=== PATIENT | male | born 1985 | race African-American/Black ===

== ENCOUNTER → 2024-11-05 | Outpatient (CLI) | payer MEDICARE, MEDICAID, SELFPAY ==
--- NOTE | 2024-11-05 15:20 | XR_ITS ---
Examination: MRI left foot, without contrast Date and time of exam: November 05, 2024 at 1629 hours INDICATIONS: Injury to the foot August 03, 2024 with persistent lateral left sided foot pain Technique: Multiple axial sagittal and coronal images of the left foot have been obtained with the Siemens high-resolution 1.5 [employer] MRI scanner. Images obtained include T2-weighted fat-suppressed sagittal sections, TR 3500, TE 46, T2 weighted coronal fat suppressed images, TR 3050, TE 84, T2-weighted transverse fat suppressed images, TR 3260, TE 63, proton density transverse images, TR 4720 TE 46, and T1 weighted coronal images, TR 560, TE 13. Findings: Mild increased signal distal fifth metatarsal Surrounding fluid density about the distal first metatarsal and fluid in the fifth metatarsophalangeal joint No soft tissue abscess Moderate narrowing first metatarsophalangeal joint with chronic erosions distal first metatarsal Mild plantar fasciitis IMPRESSION: Mild increased signal in the distal fifth metatarsal with fluid in the fifth metatarsophalangeal joint Recommend correlation with CT foot without contrast follow up
--- NOTE | 2024-11-05 15:20 | XR_ITS ---
Examination: MRI of brain without intravenous contrast. MRI brain with intravenous contrast. Date and time of exam:November 05, 2024, 1651 hours INDICATIONS: Frequent falls in the last several months with injury to head, headaches Technique: Multiple axial and sagittal images of the brain to been obtained. Siemens high-resolution 1.52 [employer] short bore scanner utilized. Sagittal sections, T1 weighted images, TR 500, TE 14, are performed. Axial sections proton-density and T2-weighted images have been obtained. Inversion recovery axial images, TR 9260, TE 111, TR 2500. Diffusion weighted images, axial sections, TR 4800, TE 128, B value 1000. Axial sections, ADC map, TR 4800, TE 128. Axial and coronal images were also obtained post 14 cc gadolinium administered intravenously. Findings:: Enlargement of the sella turcica is not present. The optic chiasm and infundibular stalk are not remarkable. There is no localized enlargement of the medulla or rosalva. Fourth ventricle and cerebellar tonsils appear normal in position. No subacute area of hemorrhage density is seen. Fourth ventricle is midline. Mass in the cerebellopontine angle region is not evident. 7th and 8th nerve complexes exhibit symmetry Globes are symmetrical Orbital musculature including medial lateral rectus muscles do not exhibit abnormality Increased white matter signal is not seen Effacement of the cortical sulcal markings is not identified. Mass effect upon the ventricular system is not identified. Diffusion-weighted images demonstrate no focus of restricted diffusion Contrast images demonstrate no abnormal enhancement Impression: Negative for acute hemorrhage, mass effect or midline shift No acute infarct No MR findings diagnostic for demyelinating disease No abnormal enhancing cerebellar or cerebral lesions
== END | disposition home or self-care (01) ==
LOC: SMRI 11-12 07:57
PROVIDERS: PCP Family Medicine; Referring Provider Family Medicine; Visit Provider Family Medicine
DX: M79.672 Pain in left foot (principal); R51.9 Headache, unspecified; S99.82 Other specified injuries of foot; S09.90XS Unspecified injury of head, sequela; W19.XXXS Unspecified fall, sequela
CPT/HCPCS: 70553; 73718; A9579

== ENCOUNTER → 2025-05-31 | Outpatient (CLI) | payer MEDICARE, MEDICAID, SELFPAY ==
--- NOTE | 2025-05-31 | XR_ITS ---
EXAMINATION: PA lateral chest 2 views Technique when upright PA lateral chest 2 views Date and time: May,, 1249 hours INDICATIONS: Coughing beginning 3 days ago. FINDINGS: Normal heart size Lungs are clear. Osseous structures are intact IMPRESSION: No active disease
--- NOTE | 2025-05-31 | XR_ITS ---
EXAMINATION: Sinus series 3 views TECHNIQUE: Inés Valdovinos lateral sinus series 3 views Date and time: May 31, 2025, 1251 hours INDICATIONS: Sinus congestion 3 days. FINDINGS: Moderate hypertrophy inferior nasal turbinates Opacity involving the frontal ethmoid air cells and maxillary antra No fluid levels or retention cyst IMPRESSION: Chronic maxillary antral ethmoid and frontal sinusitis
== END | disposition home or self-care (01) ==
DX: J32.8 Other chronic sinusitis (principal)
CPT/HCPCS: 70220; 71046